=== PATIENT | female | born 1995 | race Caucasian/White ===

== ENCOUNTER 2021-11-26 16:11 | Outpatient (CLI) | payer OTHER ==
[~2021-11-26] VITALS: Ht 160 cm; Wt 97.3 kg
[2021-11-26] MEDS ORDERED: TUMS750C22 PO (16:31)
[2021-11-26] MEDS ORDERED: PRENTAB9 PO (16:31)
[2021-11-26 16:33] VITALS: BP 105/56
[2021-11-26] MEDS ORDERED: HOME MED LIST COMPLETE! XX SCH (16:35)
== END 2021-11-26 17:17 | disposition home or self-care (01) ==
LOC: M LDO 16:11
PROVIDERS: ATTEND Obstetrics & Gynecology
DX: O26.893 Other specified pregnancy related conditions, third trimester (principal); N89.8 Other specified noninflammatory disorders of vagina; Z3A.34 34 weeks gestation of pregnancy
CPT/HCPCS: 59025; 76815; G0463

== ENCOUNTER 2021-12-04 00:40 | Outpatient (CLI) | payer OTHER ==
[~2021-12-04] VITALS: Ht 160 cm; Wt 99.2 kg
[~2021-12-04 00:40] MED LIST: PRENTAB9 PO; TUMS750C22 PO
[2021-12-04] MEDS ORDERED: HOME MED LIST COMPLETE! XX SCH (01:05)
[2021-12-04 01:19] VITALS: BP 110/56
[2021-12-04] MEDS ORDERED: LR 1,000 ML IV ONE (01:35)
[2021-12-04 02:05] LABS: APPEARANCE, URINE CLEAR (CLEAR); BACTERIA, URINE AUTO NEGATIVE (NEGATIVE); BILIRUBIN, URINE AUTO NEGATIVE (NEGATIVE); BLOOD, URINE BLOOD NEGATIVE (NEGATIVE); COLOR, URINE COLORLESS (YELLOW); GLUCOSE, URINE (UA) AUTO NEGATIVE (NEGATIVE); KETONE, URINE AUTO NEGATIVE (NEGATIVE); LEUKOCYTE ESTERASE, URINE AUTO NEGATIVE (NEGATIVE); NITRITE, URINE AUTO NEGATIVE (NEGATIVE); PROTEIN, URINE AUTO NEGATIVE (NEGATIVE); RBC, URINE AUTO 0 /HPF (0-3); SPECIFIC GRAVITY URINE AUTO 1.001 (1.002-1.035); SQUAMOUS EPITHELIAL CELL UR AU 0 /HPF (0-6); UROBILINOGEN, URINE AUTO 0.2 mg/dL (0.0-2.0); WBC, URINE AUTO 0 /HPF (0-3)
[2021-12-04 02:37] VITALS: BP 106/76
[2021-12-04 03:41] VITALS: BP 111/51
[2021-12-04 06:02] VITALS: BP 102/51
== END 2021-12-04 06:11 | disposition home or self-care (01) ==
LOC: M LDO 00:40
PROVIDERS: ATTEND Obstetrics & Gynecology
DX: O26.893 Other specified pregnancy related conditions, third trimester (principal); R25.2 Cramp and spasm; Z3A.35 35 weeks gestation of pregnancy
CPT/HCPCS: 59025; 81001; 87086; G0463

== ENCOUNTER 2022-01-09 05:00 | Inpatient (IN) | payer OTHER ==
[~2022-01-09] VITALS: Ht 160 cm; Wt 104.3 kg
[2022-01-09] VITALS (38 sets, daily range): BP systolic 114–158; BP diastolic 60–91
[2022-01-09] MEDS ORDERED: OXYTOCIN DRIP 30 UNITS in IV 1 EA IV PRN ×5 (06:20→11:45)
[2022-01-09] MEDS ORDERED: miSOPROStol 25MCG 1/4 TABLET PO SCH (06:20)
[2022-01-09] MEDS ORDERED: LIDOCAINE 1% MDV 20ML VIAL INFIL PRN (06:20)
[2022-01-09 07:50] LABS: HEMATOCRIT 35.4 % (36.0-47.0); HEMOGLOBIN 11.6 g/dl (12.0-15.5); MEAN CORPUSCULAR HGB CONC 32.8 g/dl (32.0-36.5); MEAN CORPUSCULAR VOLUME 91.5 fl (80.0-96.0); PLATELET COUNT, AUTOMATED 347 10^3/uL (150-450); RED BLOOD COUNT 3.87 10^6/uL (4.00-5.40)
[2022-01-09] MEDS: LR 1,000 ML IV SCH ×3 (11:05→21:32)
[2022-01-09] MEDS: ONDANSETRON 4MG/2ML VIAL IV PRN (11:21)
[2022-01-09] MEDS ORDERED: FENTANYL 2MCG/ML ROPIVACAINE 0.2% IN 0.9% NACL 100ML IVBAG As Ordered ONE (11:41)
[2022-01-09] MEDS ORDERED: LR 1,000 ML IV SCH (11:45)
[2022-01-09] MEDS ORDERED: LACTATED RINGER'S 1000 ML IV ONE (11:45)
[2022-01-09] MEDS ORDERED: TRANEXAMIC ACID INJection 1,000 MG in NS 100 ML IV PRN (11:45)
[2022-01-09] MEDS ORDERED: OXYTOCIN INJ 10 UNITS/ML VIAL (J2590) IV PRN (11:45)
[2022-01-09] MEDS ORDERED: EPIDURAL COMMENT XX SCH (12:10)
[2022-01-09] MEDS ORDERED: ePHEDrine SULFATE 25 MG/5 ML(5MG/ML) SYRINGE IV PRN (12:10)
[2022-01-09] MEDS ORDERED: diphenhydrAMINE 50MG/ML VIAL (J1200) IV PRN (12:10)
[2022-01-09] MEDS ORDERED: REFRIGERATOR IV KEYS XX PRN (12:10)
[2022-01-09] MEDS ORDERED: LACTATED RINGER'S 1000 ML IV PRN (12:10)
[2022-01-09] MEDS ORDERED: EPIDURAL/PCA KEYS XX PRN (12:10)
[2022-01-09] MEDS ORDERED: NALOXONE INJ 0.4MG/1ML VIAL (J2310 PER 1MG) IV PRN (12:10)
[2022-01-09] MEDS ORDERED: ONDANSETRON 4MG/2ML VIAL IV PRN (12:10)
[2022-01-09] MEDS: FENTANYL/ROPIVACAINE/NACL BAG 100 ML EPIDURAL SCH ×2 (12:18→20:31)
[2022-01-09] MEDS ORDERED: OXYTOCIN INJ 10 UNITS/ML VIAL (J2590) IV ONE (12:30)
[2022-01-09] MEDS ORDERED: OXYTOCIN DRIP 30 UNITS in IV 1 EA IV SCH (12:30)
[2022-01-09] MEDS ORDERED: ACETAMINOPHEN 500 MG TAB PO ONE (18:40)
[2022-01-10] VITALS (41 sets, daily range): BP systolic 80–155; BP diastolic 43–96
[2022-01-10] MEDS ORDERED: ACETAMINOPHEN 500 MG TAB PO ONE (00:55)
[2022-01-10] MEDS ORDERED: ceFAZolin SOD 2 GM in IV 1 EA IV ONE (01:40)
[2022-01-10] MEDS ORDERED: ceFAZolin 2 GM/D5W 50 ML IV BAG (J0690 PER 500MG) As Ordered ONE (01:43)
[2022-01-10] MEDS: FENTANYL/ROPIVACAINE/NACL BAG 100 ML EPIDURAL SCH (04:50)
[2022-01-10] MEDS ORDERED: CARBOPROST TROMETHAMINE 250 MCG/ML AMP IM PRN (10:25)
[2022-01-10] MEDS ORDERED: OXYTOCIN INJ 10 UNITS/ML VIAL (J2590) IV PRN (10:25)
[2022-01-10] MEDS ORDERED: OXYTOCIN DRIP 30 UNITS in IV 1 EA IV PRN ×6 (10:25)
[2022-01-10] MEDS ORDERED: OXYTOCIN INJ 10 UNITS/ML VIAL (J2590) IM PRN (10:25)
[2022-01-10] MEDS ORDERED: CLINDAMYCIN 900 MG in IV 1 EA IV ONE (10:25)
[2022-01-10] MEDS ORDERED: TRANEXAMIC ACID INJection 1,000 MG in NS 100 ML IV PRN (10:25)
[2022-01-10] MEDS ORDERED: BICITRA 30ML SOLN UDC PO ONE (10:25)
[2022-01-10] MEDS ORDERED: BUPIVACAINE HCL 0.25% 10ML VIAL SC ONE (10:25)
[2022-01-10] MEDS ORDERED: METHYLERGONOVINE MALEATE 0.2 MG/ML VIAL (J2210) IM PRN (10:25)
[2022-01-10] MEDS ORDERED: CLINDAMYCIN 900MG/50ML PREMIX BAG As Ordered ONE (10:31)
[2022-01-10] MEDS ORDERED: BICITRA 30ML SOLN UDC As Ordered ONE (10:31)
[2022-01-10] MEDS ORDERED: LIDOCAINE PRES-FREE 2% 10ML AMP As Ordered ONE (10:35)
[2022-01-10] MEDS ORDERED: MORPHINE PRES-FREE INJ 10 MG/10 ML VIAL As Ordered ONE (10:36)
[2022-01-10] MEDS ORDERED: NALOXONE INJ 0.4MG/1ML VIAL (J2310 PER 1MG) IV PRN ×2 (11:00)
[2022-01-10] MEDS ORDERED: AMPICILLIN SOD 2 GM in D5W MINI-BAG PLUS 100 ML IV SCH (11:00)
[2022-01-10] MEDS ORDERED: METOCLOPRAMIDE INJ 10MG/2ML VIAL (J2765 PER 1) IV PRN (11:00)
[2022-01-10] MEDS ORDERED: diphenhydrAMINE 50MG/ML VIAL (J1200) IV PRN (11:00)
[2022-01-10] MEDS ORDERED: ONDANSETRON 4MG/2ML VIAL IV PRN ×2 (11:00→12:45)
[2022-01-10] MEDS ORDERED: TRANEXAMIC ACID 100 MG/ML 10ML VIAL As Ordered ONE (11:05)
[2022-01-10] MEDS ORDERED: KETAMINE HCL 200 MG/20 ML VIAL As Ordered ONE (11:05)
[2022-01-10] MEDS ORDERED: fentaNYL 100 MCG/2 ML INJECTION As Ordered ONE (11:07)
[2022-01-10] MEDS ORDERED: MIDAZOLAM INJ 2MG/2ML VIAL (J2250 PER 1MG) As Ordered ONE (11:25)
[2022-01-10 11:27] LABS: CORD GAS ABE A -4.6; CORD GAS ABE V -6.1; CORD GAS HCO3 V 18.8 MEQ/L; CORD GAS O2 SAT A 90.6 %; CORD GAS O2 SAT V 83.6 %; CORD GAS PCO2 V 35.5 mmHg; CORD GAS PH A 7.363 UNITS; CORD GAS PH V 7.342 UNITS; CORD GAS PO2 A 50.2 mmHg; CORD GAS PO2 V 38.2 mmHg; CORD GAS SBC A 20.5 MEQ/L; CORD GAS SBC V 19.2 MEQ/L; CORD GAS TCO2 A 21.1 MEQ/L; CORD GAS TCO2 V 19.9 MEQ/L
[2022-01-10] MEDS ORDERED: OXYTOCIN INJ 10 UNITS/ML VIAL (J2590) As Ordered ONE (11:29)
[2022-01-10] MEDS ORDERED: MOM 30ML SUSPENSION UDC PO PRN (11:55)
[2022-01-10] MEDS ORDERED: ANUSOL HC CREAM 30GM TOP PRN (11:55)
[2022-01-10] MEDS ORDERED: oxyCODONE 5MG TAB PO PRN ×2 (11:55→12:45)
[2022-01-10] MEDS ORDERED: MEASLES,MUMPS,RUBELLA VACCINE INJ (MMR-II) (90707) SC SCH (11:55)
[2022-01-10] MEDS ORDERED: ACETAMINOPHEN 500 MG TAB PO PRN (11:55)
[2022-01-10] MEDS ORDERED: SIMETHICONE 80MG CHEW TAB PO PRN (11:55)
[2022-01-10] MEDS ORDERED: RHOGAM 300 MCG (1500 IU) INJ (J2790) IM SCH (11:55)
[2022-01-10] MEDS ORDERED: OXYTOCIN 30 UNITS IN 0.9% NaCl 500ML IV BAG (J2590) As Ordered ONE (11:57)
[2022-01-10] MEDS: GENTAMICIN 400 MG in D5W 100 ML IV SCH (12:00)
[2022-01-10] MEDS ORDERED: MEPERIDINE INJ 25 MG/ML VIAL (J2175) IV PRN (12:45)
[2022-01-10] MEDS ORDERED: fentaNYL 100 MCG/2 ML INJECTION IV PRN (12:45)
[2022-01-10] MEDS ORDERED: HYDROMORPHONE HCL 0.5 MG/ 0.5 ML SYRINGE (J1170 PER 1) IV PRN (12:45)
[2022-01-10] MEDS ORDERED: KETOROLAC 30 MG/ML 1ML VIAL As Ordered ONE (12:58)
[2022-01-10] MEDS: KETOROLAC 30 MG/ML 1ML VIAL IV SCH ×2 (13:01→19:09)
[2022-01-10] MEDS: ONDANSETRON 4MG/2ML VIAL IV PRN (14:22)
[2022-01-10] MEDS: AMPICILLIN SOD 2 GM in D5W MINI-BAG PLUS 100 ML IV SCH ×2 (17:22→23:15)
[2022-01-10] MEDS: LR 1,000 ML IV SCH (18:24)
[2022-01-10] MEDS: DOCUSATE SODIUM 100MG CAPSULE PO SCH (21:05)
[2022-01-10] MEDS: ENOXAPARIN 60MG/0.6ML SYRINGE (J1650 PER 10MG) SC SCH (21:05)
[2022-01-11] MEDS: KETOROLAC 30 MG/ML 1ML VIAL IV SCH ×2 (01:36→07:31)
[2022-01-11 02:00] VITALS: BP 107/56
[2022-01-11] MEDS: LR 1,000 ML IV SCH ×2 (03:13→09:45)
[2022-01-11] MEDS: AMPICILLIN SOD 2 GM in D5W MINI-BAG PLUS 100 ML IV SCH ×2 (05:03→11:54)
[2022-01-11 06:00] VITALS: BP 109/60
[2022-01-11 06:50] LABS: HEMATOCRIT 25.6 % (36.0-47.0); HEMOGLOBIN 8.6 g/dl (12.0-15.5); MEAN CORPUSCULAR HEMOGLOBIN 30.5 pg (27.0-33.0); MEAN CORPUSCULAR HGB CONC 33.6 g/dl (32.0-36.5); MEAN CORPUSCULAR VOLUME 90.8 fl (80.0-96.0); PLATELET COUNT, AUTOMATED 257 10^3/uL (150-450); RED BLOOD COUNT 2.82 10^6/uL (4.00-5.40); WHITE BLOOD COUNT 14.2 10^3/uL (4.0-10.0)
[2022-01-11 10:00] VITALS: BP 111/55
[2022-01-11] MEDS: FERROUS SULFATE 325MG TAB PO SCH (11:13)
[2022-01-11] MEDS: PRENATAL VITAMINS CHEWABLE TABLET PO SCH (11:13)
[2022-01-11] MEDS: DOCUSATE SODIUM 100MG CAPSULE PO SCH ×2 (11:14→21:26)
[2022-01-11] MEDS: GENTAMICIN 400 MG in D5W 100 ML IV SCH (12:00)
[2022-01-11 14:00] VITALS: BP 117/62
[2022-01-11] MEDS: IBUPROFEN 800 MG TAB PO SCH ×2 (14:24→23:34)
[2022-01-11 18:11] VITALS: BP 109/56
[2022-01-11] MEDS: oxyCODONE 5MG TAB PO PRN (19:43)
[2022-01-11] MEDS: ENOXAPARIN 60MG/0.6ML SYRINGE (J1650 PER 10MG) SC SCH (21:27)
[2022-01-11 22:00] VITALS: BP 113/56
[2022-01-12 03:00] VITALS: BP 131/71
[2022-01-12] MEDS: oxyCODONE 5MG TAB PO PRN (03:27)
[2022-01-12] MEDS ORDERED: COLA100C5 PO (04:57)
[2022-01-12] MEDS ORDERED: FERR1TAB8 PO (04:57)
[2022-01-12] MEDS ORDERED: ACET-683 PO (04:57)
[2022-01-12] MEDS ORDERED: IBUP80TA PO (04:57)
[2022-01-12 06:00] VITALS: BP 124/65
[2022-01-12] MEDS: IBUPROFEN 800 MG TAB PO SCH (06:53)
[2022-01-12] MEDS: PRENATAL VITAMINS CHEWABLE TABLET PO SCH (07:26)
[2022-01-12] MEDS: FERROUS SULFATE 325MG TAB PO SCH (07:28)
[2022-01-12] MEDS: DOCUSATE SODIUM 100MG CAPSULE PO SCH (07:30)
[2022-01-12 09:54] VITALS: BP 132/71
== END 2022-01-12 10:48 | disposition home or self-care (01) | DRG 771 ==
LOC: M LDO 05:00 → M LDI 07:02 → M OBS 01-10 13:46
PROVIDERS: ADMIT Obstetrics & Gynecology; ATTEND Obstetrics & Gynecology
PROC: 3E0P7GC Introduction of Other Therapeutic Substance into Female Reproductive, Via Natural or Artificial Opening (ICD-10-PCS; 2022-01-09)
PROC: 10907ZC Drainage of Amniotic Fluid, Therapeutic from Products of Conception, Via Natural or Artificial Opening (ICD-10-PCS; 2022-01-09)
PROC: 10D00Z1 Extraction of Products of Conception, Low, Open Approach (ICD-10-PCS; principal; 2022-01-10 10:20)
DX: O64.0XX0 Obstructed labor due to incomplete rotation of fetal head, not applicable or unspecified (principal); O41.1230 Chorioamnionitis, third trimester, not applicable or unspecified; Z3A.40 40 weeks gestation of pregnancy; Z37.0 Single live birth; O99.214 Obesity complicating childbirth; E66.9 Obesity, unspecified; O36.63X0 Maternal care for excessive fetal growth, third trimester, not applicable or unspecified

== ENCOUNTER 2022-12-06 06:53 | Emergency (ER) | payer OTHER ==
[~2022-12-06] VITALS: Ht 160 cm; Wt 87.7 kg
[~2022-12-06 06:53] MED LIST changes: +ACET-683 PO; +COLA100C5 PO; +FERR1TAB8 PO; +IBUP80TA PO
[2022-12-06 08:21] LABS: APPEARANCE, URINE HAZY (CLEAR); BACTERIA, URINE AUTO NEGATIVE (NEGATIVE); BILIRUBIN, URINE AUTO NEGATIVE (NEGATIVE); BLOOD, URINE BLOOD NEGATIVE (NEGATIVE); COLOR, URINE YELLOW (YELLOW); GLUCOSE, URINE (UA) AUTO NEGATIVE (NEGATIVE); KETONE, URINE AUTO NEGATIVE (NEGATIVE); LEUKOCYTE ESTERASE, URINE AUTO NEGATIVE (NEGATIVE); NITRITE, URINE AUTO NEGATIVE (NEGATIVE); PROTEIN, URINE AUTO NEGATIVE (NEGATIVE); RBC, URINE AUTO 1 /HPF (0-3); SPECIFIC GRAVITY URINE AUTO 1.016 (1.002-1.035); SQUAMOUS EPITHELIAL CELL UR AU 1 /HPF (0-6); UROBILINOGEN, URINE AUTO 0.2 mg/dL (0.0-2.0); WBC, URINE AUTO 1 /HPF (0-3)
[2022-12-06 08:30] LABS: BASO # 0.1 10^3/uL (0.0-0.2); BASO % 0.6 % (0.0-1.0); EOS # 0.2 10^3/uL (0.0-0.5); EOS % 2.3 % (0.0-3.0); HEMOGLOBIN 11.9 g/dl (12.0-15.5); LYMPH # 1.7 10^3/uL (1.5-5.0); LYMPH % 19.6 % (24.0-44.0); MEAN CORPUSCULAR HEMOGLOBIN 31.2 pg (27.0-33.0); MEAN CORPUSCULAR VOLUME 91.9 fl (80.0-96.0); MONO # 0.5 10^3/uL (0.0-0.8); MONO % 5.5 % (2.0-8.0); NEUTROPHILS # 6.1 10^3/uL (1.5-8.5); NEUTROPHILS % 71.8 % (36.0-66.0); PLATELET COUNT, AUTOMATED 351 10^3/uL (150-450); RED BLOOD COUNT 3.81 10^6/uL (4.00-5.40); WHITE BLOOD COUNT 8.6 10^3/uL (4.0-10.0)
[2022-12-06 08:46] LABS: LIPASE 37 U/L (12-53)
[2022-12-06 08:48] LABS: ALBUMIN 2.8 G/DL (3.2-5.2); ALKALINE PHOSPHATASE 77 U/L (46-116); ALT/SGPT 21 U/L (7.0-40); AST/SGOT 12 U/L (<34); BILIRUBIN,DIRECT < 0.1 MG/DL (<0.4); BILIRUBIN,TOTAL 0.3 MG/DL (0.3-1.2); BLOOD UREA NITROGEN 7 MG/DL (9-23); CARBON DIOXIDE LEVEL 27 MMOL/L (20-31); CHLORIDE LEVEL 105 MMOL/L (98-107); CREATININE FOR GFR 0.57 MG/DL (0.55-1.30); GLOMERULAR FILTRATION RATE > 60.0 (>60); GLUCOSE, FASTING 84 MG/DL (60-100); POTASSIUM SERUM 4.1 MMOL/L (3.5-5.1); SODIUM LEVEL 138 MMOL/L (136-145); TOTAL PROTEIN 6.5 G/DL (5.7-8.2)
[2022-12-06 09:02] LABS: HCG, SERUM QUANTITATIVE 18362.6 MIU/ML (<4.2)
[2022-12-06 10:14] VITALS: BP 118/58
== END 2022-12-06 10:24 | disposition home or self-care (01) ==
LOC: M ED 06:53
DX: O26.899 Other specified pregnancy related conditions, unspecified trimester (principal); Z3A.17 17 weeks gestation of pregnancy

== ENCOUNTER 2023-04-18 23:08 | Outpatient (CLI) | payer OTHER ==
[~2023-04-18] VITALS: Ht 160 cm; Wt 98.1 kg
[2023-04-18 23:23] VITALS: BP 137/62
[2023-04-19] MEDS ORDERED: FLUCONAZOLE 50MG TABLET PO ONE (01:00)
[2023-04-20] MEDS ORDERED: FLUCONAZOLE 50MG TABLET PO ONE (01:00)
== END 2023-04-19 00:33 | disposition home or self-care (01) ==
LOC: M LDO 23:08
PROVIDERS: ATTEND Obstetrics & Gynecology
DX: O23.593 Infection of other part of genital tract in pregnancy, third trimester (principal); Z3A.36 36 weeks gestation of pregnancy; O34.219 Maternal care for unspecified type scar from previous cesarean delivery
CPT/HCPCS: 59025; 81001; G0463

== ENCOUNTER 2023-05-10 07:30 | Inpatient (IN) | payer OTHER ==
[~2023-05-10] VITALS: Ht 160 cm; Wt 97.9 kg
[2023-05-10] VITALS (8 sets, daily range): BP systolic 109–122; BP diastolic 58–77; TEMP 97; O2SAT 98–100
[2023-05-10] MEDS ORDERED: HOME MED LIST COMPLETE! XX SCH (07:50)
[2023-05-10] MEDS ORDERED: LACTATED RINGER'S 1000 ML IV STA (07:55)
[2023-05-10] MEDS ORDERED: BICITRA 30ML SOLN UDC PO ONE (07:55)
[2023-05-10] MEDS ORDERED: ceFAZolin SOD 2 GM in IV 1 EA IV ONE (07:55)
[2023-05-10 09:15] LABS: HEMATOCRIT 31.8 % (36.0-47.0); HEMOGLOBIN 10.4 g/dl (12.0-15.5); MEAN CORPUSCULAR HEMOGLOBIN 28.7 pg (27.0-33.0); MEAN CORPUSCULAR HGB CONC 32.7 g/dl (32.0-36.5); MEAN CORPUSCULAR VOLUME 87.6 fl (80.0-96.0); PLATELET COUNT, AUTOMATED 371 10^3/uL (150-450); RED BLOOD COUNT 3.63 10^6/uL (4.00-5.40); WHITE BLOOD COUNT 6.9 10^3/uL (4.0-10.0)
[2023-05-10] MEDS ORDERED: ONDANSETRON 4MG 2ML VIAL As Ordered ONE ×2 (09:52→12:11)
[2023-05-10] MEDS ORDERED: PHENYLephrine 500MCG 5ML (100MCG/ML) SYRINGE As Ordered ONE (09:52)
[2023-05-10] MEDS ORDERED: ePHEDrine SULFATE 25 MG/5 ML(5MG/ML) SYRINGE As Ordered ONE (09:52)
[2023-05-10] MEDS ORDERED: OXYTOCIN 30UNITS IN 0.9% NaCl 500ML IV BAG As Ordered ONE (09:52)
[2023-05-10] MEDS ORDERED: KETOROLAC 60MG 2ML VIAL As Ordered ONE (09:52)
[2023-05-10] MEDS ORDERED: MORPHINE PRES-FREE INJ 10 MG/10 ML VIAL As Ordered ONE (09:52)
[2023-05-10] MEDS ORDERED: METOCLOPRAMIDE INJ 10MG/2ML VIAL As Ordered ONE (10:21)
[2023-05-10] MEDS ORDERED: METHYLERGONOVINE MALEATE 0.2 MG TAB PO PRN (11:10)
[2023-05-10] MEDS ORDERED: oxyCODONE 5MG TAB PO PRN ×3 (11:10→11:25)
[2023-05-10] MEDS ORDERED: ANUSOL HC CREAM 30GM TOP PRN (11:10)
[2023-05-10] MEDS ORDERED: SIMETHICONE 80MG CHEW TAB PO PRN (11:10)
[2023-05-10] MEDS ORDERED: ACETAMINOPHEN 500 MG TAB PO PRN (11:10)
[2023-05-10] MEDS ORDERED: RHOGAM 300MCG (1500IU) INJ IM SCH (11:10)
[2023-05-10] MEDS ORDERED: MORPHINE 2 MG/ML 1ML VIAL IV PRN (11:10)
[2023-05-10] MEDS ORDERED: MEPERIDINE 25 MG/ML 1ML VIAL IV PRN (11:25)
[2023-05-10] MEDS ORDERED: METOCLOPRAMIDE INJ 10MG/2ML VIAL IV PRN (11:25)
[2023-05-10] MEDS ORDERED: fentaNYL 100 MCG/2 ML INJECTION IV PRN (11:25)
[2023-05-10] MEDS ORDERED: HYDROMORPHONE HCL 0.5 MG/ 0.5 ML SYRINGE IV PRN (11:25)
[2023-05-10] MEDS ORDERED: ONDANSETRON 4MG 2ML VIAL IV PRN (11:25)
[2023-05-10] MEDS ORDERED: **NOTE PATIENT COMMENT** MISC XX SCH (11:25)
[2023-05-10] MEDS ORDERED: diphenhydrAMINE 50MG/ML VIAL IV PRN (11:25)
[2023-05-10] MEDS ORDERED: NALOXONE INJ 0.4MG/1ML VIAL IV PRN ×2 (11:25)
[2023-05-10] MEDS: LR 1,000 ML IV SCH ×3 (11:28→21:46)
[2023-05-10] MEDS: SLF 3 ML SYR IV SCH ×2 (13:22→19:25)
[2023-05-10] MEDS ORDERED: LACTATED RINGER'S 1000 ML IV ONE (15:55)
[2023-05-10] MEDS: KETOROLAC 30 MG/ML 1ML VIAL IV SCH ×2 (17:39→23:31)
[2023-05-10] MEDS ORDERED: CALCIUM CARBONATE 500 MG CHEW U/D PO PRN (21:55)
[2023-05-10] MEDS: FAMOTIDINE 20 MG TAB PO SCH (22:08)
[2023-05-11 02:00] VITALS: BP 96/53; O2SAT 97
[2023-05-11] MEDS: SLF 3 ML SYR IV SCH (03:25)
[2023-05-11] MEDS: KETOROLAC 30 MG/ML 1ML VIAL IV SCH (05:00)
[2023-05-11 06:00] VITALS: BP 126/63; O2SAT 100
[2023-05-11 06:27] LABS: HEMATOCRIT 25.4 % (36.0-47.0); MEAN CORPUSCULAR HGB CONC 32.7 g/dl (32.0-36.5); MEAN CORPUSCULAR VOLUME 88.8 fl (80.0-96.0); PLATELET COUNT, AUTOMATED 280 10^3/uL (150-450); RED BLOOD COUNT 2.86 10^6/uL (4.00-5.40); WHITE BLOOD COUNT 10.7 10^3/uL (4.0-10.0)
[2023-05-11 06:37] LABS: HEMOGLOBIN 8.3 g/dl (12.0-15.5)
[2023-05-11] MEDS: PRENATAL VITAMINS CHEWABLE TABLET PO SCH (08:59)
[2023-05-11 10:00] VITALS: BP 104/54; O2SAT 98
[2023-05-11] MEDS: IBUPROFEN 800 MG TAB PO SCH ×2 (13:34→21:22)
[2023-05-11 14:00] VITALS: BP 103/54; O2SAT 97
[2023-05-11 18:00] VITALS: BP 126/67; O2SAT 98
[2023-05-11] MEDS: ACETAMINOPHEN TAB 650MG DOSE (2X325MG) PO PRN (18:30)
[2023-05-11] MEDS: FAMOTIDINE 20 MG TAB PO SCH (21:22)
[2023-05-11 22:00] VITALS: BP 110/65; O2SAT 100
[2023-05-12] MEDS: ACETAMINOPHEN TAB 650MG DOSE (2X325MG) PO PRN (00:45)
[2023-05-12 02:00] VITALS: BP 107/58; O2SAT 96
[2023-05-12] MEDS: IBUPROFEN 800 MG TAB PO SCH (05:22)
[2023-05-12 06:00] VITALS: BP 122/79; O2SAT 98
[2023-05-12] MEDS: PRENATAL VITAMINS CHEWABLE TABLET PO SCH (08:01)
[2023-05-12] MEDS ORDERED: OXYC-517 PO (08:19)
[2023-05-12] MEDS ORDERED: IBUP80TA PO (08:19)
[2023-05-12] MEDS ORDERED: MEASLES,MUMPS,RUBELLA VACCINE INJ (MMR-II) SC.IMMUN ONE (09:00)
[2023-05-12 10:00] VITALS: BP 118/68; O2SAT 100
== END 2023-05-12 11:37 | disposition home or self-care (01) | DRG 773 ==
LOC: M LDI 07:30 → M OBS 12:30
PROVIDERS: ADMIT Obstetrics & Gynecology; ATTEND Obstetrics & Gynecology
PROC: 10D00Z1 Extraction of Products of Conception, Low, Open Approach (ICD-10-PCS; principal; 2023-05-10 09:30)
DX: O34.211 Maternal care for low transverse scar from previous cesarean delivery (principal); Z37.0 Single live birth; Z3A.39 39 weeks gestation of pregnancy

== ENCOUNTER 2023-09-19 01:41 | Emergency (ER) | payer OTHER ==
[~2023-09-19] VITALS: Ht 160 cm; Wt 84.5 kg
[~2023-09-19 01:41] MED LIST changes: +OXYC-517 PO
[2023-09-19 02:44] LABS: BASO # 0.1 10^3/uL (0.0-0.2); BASO % 0.6 % (0.0-1.0); EOS # 0.3 10^3/uL (0.0-0.5); EOS % 2.9 % (0.0-3.0); HEMATOCRIT 40.8 % (36.0-47.0); HEMOGLOBIN 13.8 g/dl (12.0-15.5); LYMPH % 21.4 % (24.0-44.0); MEAN CORPUSCULAR HEMOGLOBIN 30.8 pg (27.0-33.0); MEAN CORPUSCULAR HGB CONC 33.8 g/dl (32.0-36.5); MEAN CORPUSCULAR VOLUME 91.1 fl (80.0-96.0); MONO # 0.4 10^3/uL (0.0-0.8); NEUTROPHILS # 6.7 10^3/uL (1.5-8.5); NEUTROPHILS % 70.9 % (36.0-66.0); PLATELET COUNT, AUTOMATED 426 10^3/uL (150-450); RED BLOOD COUNT 4.48 10^6/uL (4.00-5.40); WHITE BLOOD COUNT 9.5 10^3/uL (4.0-10.0)
[2023-09-19 03:03] LABS: LIPASE 44 U/L (12-53)
[2023-09-19 03:05] LABS: ALKALINE PHOSPHATASE 103 U/L (46-116); ALT/SGPT 44 U/L (7.0-40); AST/SGOT 28 U/L (<34); BILIRUBIN,DIRECT < 0.1 MG/DL (<0.4); BILIRUBIN,TOTAL 0.3 MG/DL (0.3-1.2); TOTAL PROTEIN 7.8 G/DL (5.7-8.2)
[2023-09-19 03:08] LABS: HCG, SERUM QUALITATIVE NEGATIVE (NEGATIVE)
[2023-09-19] MEDS ORDERED: LEVS0.123 PO (06:53)
[2023-09-19 07:07] VITALS: BP 102/64; TEMP 96.7; O2SAT 98
== END 2023-09-19 07:11 | disposition home or self-care (01) ==
LOC: M ED 01:41
DX: K80.50 Calculus of bile duct without cholangitis or cholecystitis without obstruction (principal); F17.200 Nicotine dependence, unspecified, uncomplicated

== ENCOUNTER 2023-11-22 13:13 | Day surgery (SDC) | payer OTHER ==
[~2023-11-22] VITALS: Ht 160 cm; Wt 80.7 kg
[~2023-11-22 13:13] MED LIST changes: +KETOROLAC 60MG 2ML VIAL As Ordered ONE; +LEVS0.123 PO; +LIDOCAINE 2% 100MG/5ML SDV (FOR ANES.) As Ordered ONE; +MIDAZOLAM INJ 2MG/2ML VIAL As Ordered ONE; +ONDANSETRON 4MG 2ML VIAL As Ordered ONE; +PHEN37.58 PO; +ROCURONIUM BROMIDE 50MG/5ML VIAL As Ordered ONE; +SUGAMMADEX SODIUM 500 MG/5 ML VIAL (BRIDION) As Ordered ONE; +fentaNYL 100 MCG/2 ML INJECTION As Ordered ONE; +propofoL 200 MG/20 ML VIAL As Ordered ONE
[2023-11-22] MEDS: SCOPOLAMINE 1MG TRANSDERMAL PATCH TOP ONE (14:08)
[2023-11-22] MEDS: LR 1,000 ML IV SCH (14:08)
[2023-11-22] MEDS: INDOCYANINE GREEN 25MG VIAL (IC-GREEN) IV ONE (14:41)
[2023-11-22] MEDS: ceFAZolin SOD 2 GM in IV 1 EA IV ONE (15:03)
[2023-11-22] MEDS: HEPARIN SOD (PORCINE) 5000UNITS/ML 1ML VIAL/SYRINGE SQ ONE (15:09)
[2023-11-22] MEDS ORDERED: HYDROmorphone HCL 2MG/ML 1ML VIAL As Ordered ONE (15:19)
[2023-11-22] MEDS ORDERED: LR 1,000 ML IV SCH (16:25)
[2023-11-22] MEDS ORDERED: fentaNYL 100 MCG/2 ML INJECTION IV PRN (16:25)
[2023-11-22] MEDS ORDERED: HYDROMORPHONE HCL 0.5 MG/ 0.5 ML SYRINGE IV PRN (16:25)
[2023-11-22] MEDS ORDERED: dexmedeTOMIDine (4MCG/ML)200MCG/50ML BTL (PRECEDEX) As Ordered ONE (16:50)
[2023-11-22] MEDS: ONDANSETRON 4MG 2ML VIAL IV PRN (17:14)
[2023-11-22] MEDS: METOCLOPRAMIDE INJ 10MG/2ML VIAL IV PRN (17:47)
[2023-11-22] MEDS: oxyCODONE 5MG TAB PO PRN (17:57)
[2023-11-22 19:00] VITALS: BP 126/77; TEMP 97.3; O2SAT 97
== END 2023-11-22 19:04 | disposition home or self-care (01) ==
LOC: M SDC 13:13
PROVIDERS: ATTEND Surgery
DX: K80.10 Calculus of gallbladder with chronic cholecystitis without obstruction (principal); Z87.891 Personal history of nicotine dependence
CPT/HCPCS: 47562; 81025; 88304; J0665; J0690; J1100; J1170; J2250; J2405; J2765; J3010; Q9968; S2900

== ENCOUNTER 2023-12-22 09:43 | Emergency (ER) | payer OTHER ==
[~2023-12-22] VITALS: Ht 157.5 cm; Wt 79.7 kg
[2023-12-22 09:43] VITALS: BP 127/81; TEMP 98.2; O2SAT 97
[~2023-12-22 09:43] MED LIST changes: -KETOROLAC 60MG 2ML VIAL As Ordered ONE; -LIDOCAINE 2% 100MG/5ML SDV (FOR ANES.) As Ordered ONE; -MIDAZOLAM INJ 2MG/2ML VIAL As Ordered ONE; -ONDANSETRON 4MG 2ML VIAL As Ordered ONE; -ROCURONIUM BROMIDE 50MG/5ML VIAL As Ordered ONE; -SUGAMMADEX SODIUM 500 MG/5 ML VIAL (BRIDION) As Ordered ONE; -fentaNYL 100 MCG/2 ML INJECTION As Ordered ONE; -propofoL 200 MG/20 ML VIAL As Ordered ONE
== END 2023-12-22 10:45 | disposition left against medical advice (07) ==
LOC: M ED 09:43
DX: Z53.21 Procedure and treatment not carried out due to patient leaving prior to being seen by health care provider (principal)

== ENCOUNTER 2024-01-05 14:45 | Emergency (ER) | payer OTHER ==
[~2024-01-05] VITALS: Ht 160 cm; Wt 77.4 kg
[2024-01-05] MEDS: ONDANSETRON 4MG 2ML VIAL IV ONE (15:56)
[2024-01-05] MEDS: KETOROLAC 30 MG/ML 1ML VIAL IV ONE (15:57)
[2024-01-05] MEDS: diazePAM 10MG/2ML SYRINGE IV ONE (15:57)
[2024-01-05 17:14] VITALS: BP 140/93; TEMP 97.4; O2SAT 98
== END 2024-01-05 18:11 | disposition home or self-care (01) ==
LOC: M ED 14:45
DX: M26.601 Right temporomandibular joint disorder, unspecified (principal); Z79.899 Other long term (current) drug therapy
CPT/HCPCS: 70110; 96374; 96375; 99284; J1885; J2405; J3360

== ENCOUNTER 2024-01-06 07:04 | Emergency (ER) | payer OTHER ==
[~2024-01-06] VITALS: Ht 160 cm; Wt 77.9 kg
[2024-01-06] MEDS: KETOROLAC 30 MG/ML 1ML VIAL IV ONE (07:54)
[2024-01-06] MEDS: diazePAM 10MG/2ML SYRINGE IV ONE (07:55)
[2024-01-06] MEDS: METHOCARBAMOL 1,000 MG/10 ML VIAL IV ONE (10:30)
[2024-01-06] MEDS: NS 1,000 ML IV SCH (11:37)
[2024-01-06] MEDS ORDERED: HOME MED LIST COMPLETE! XX SCH (12:40)
[2024-01-06] MEDS: MORPHINE 2 MG/ML 1ML VIAL IV PRN (12:42)
[2024-01-06 13:45] VITALS: BP 110/66; TEMP 97.8
[2024-01-06 14:09] VITALS: O2SAT 100
== END 2024-01-06 14:10 | disposition home or self-care (01) ==
LOC: M ED 07:04
DX: S03.01XA Dislocation of jaw, right side, initial encounter (principal); X58.XXXA Exposure to other specified factors, initial encounter; Y92.9 Unspecified place or not applicable; Y93.9 Activity, unspecified; Y99.9 Unspecified external cause status
CPT/HCPCS: 21480; 70110; 70486; 94760; 96361; 96374; 96375; 99284; J1885; J2800; J3360